=== PATIENT | male | born 1995 | race Caucasian/White ===

== ENCOUNTER 2019-01-03 08:50 | Emergency (ER) | payer OTHER ==
[2019-01-03] MEDS ORDERED: PANTOPRAZOLE 40 MG VIAL IVP STA (09:26)
[2019-01-03] MEDS ORDERED: ONDANSETRON ODT 4 MG TABLET TL STA (09:26)
[2019-01-03 09:27] LABS: BASOPHILS % (AUTO) 0.5 %; EOSINOPHILS # (AUTO) 0.1 10^3/uL (0.0-0.7); EOSINOPHILS % (AUTO) 1.6 %; HGB - HEMOGLOBIN 14.3 g/dL (14.0-18.0); LYMPHOCYTES % (AUTO) 16.2 %; MEAN CORPUSCULAR HEMOGLOBIN 30.2 pg (27.0-31.0); MEAN CORPUSCULAR HGB CONC 34.6 g/dL (32.0-36.0); MEAN CORPUSCULAR VOLUME 87.4 fL (80.0-94.0); MEAN PLATELET VOLUME 7.6 fL (7.4-11.4); MONOCYTES # (AUTO) 0.6 10^3/uL (0.0-1.0); MONOCYTES % (AUTO) 9.1 %; NEUTROPHILS # (AUTO) 4.6 10^3/uL (1.5-6.6); NEUTROPHILS % (AUTO) 72.6 %; PLT - PLATELET COUNT 249 10^3/uL (130-450); RED BLOOD COUNT 4.72 10^6/uL (4.70-6.10); RED CELL DISTRIBUTION WIDTH 13.1 % (12.0-15.0); WHITE BLOOD COUNT 6.4 x10^3/uL (4.8-10.8)
--- NOTE | 2019-01-03 09:37 | ED Physician Documentation ---
PD HPI NVD - Stated complaint Stated Complaint: VOMITING BLOOD - Chief complaint Chief Complaint: Abd Pain - History obtained from History obtained from: Patient - History of Present Illness Timing - onset: Today (at 4am) Timing - duration: Hours Timing - details: Abrupt onset Pain level max: 3 Pain level now: 3 Associated symptoms: Abdominal pain, Hematemesis. No: Fever, Chest pain, Melena, Hematochezia, Dizzy, Near syncope / syncope, Loss of appetite, Hematuria, Vaginal dc Contributing factors: Alcohol use, Other (admits to regular NSAID use after wroking out). No: Sick contact, Bad food, Travel, Recent antibiotics, Anticoagulated, Diabetes Improved by: Other (nothing) Worsened by: Other (vomiting) Similar symptoms before: Other (has a hx of GI bleeding once before) Recently seen: Not recently seen - Treatment prior to arrival Treatment prior to arrival: none Review of Systems Ten Systems: 10 systems reviewed and negative Constitutional: denies: Fever, Chills Cardiac: denies: Chest pain / pressure Respiratory: denies: Dyspnea GI: reports: Abdominal Pain, Nausea, Vomiting, Hematemesis. denies: Abdominal Swelling, Constipation, Diarrhea, Bloody / black stool Skin: denies: Rash Neurologic: denies: Generalized weakness, Syncope, LOC Endocrine: denies: Easy bruising / bleeding PD PAST MEDICAL HISTORY - Past Medical History Past Medical History: No Cardiovascular: None Respiratory: None Neuro: None Endocrine/Autoimmune: None GI: None : None HEENT: None Psych: None Musculoskeletal: None Derm: None - Past Surgical History Past Surgical History: Yes - Present Medications Home Medications: Ambulatory Orders Medication Instructions Recorded Confirmed Ondansetron Odt [Zofran] 4 mg TL Q6H PRN #10 tablet 01/03/19 Pantoprazole [Protonix] 40 mg PO DAILY #30 tablet 01/03/19 - Allergies Allergies/Adverse Reactions: Allergies Allergy/AdvReac Type Severity Reaction Status Date / Time No Known Drug Allergies Allergy Verified 01/03/19 09:09 - Social History Does the pt smoke?: No Smoking Status: Never smoker Does the pt drink ETOH?: Yes Does the pt have substance abuse?: No - Immunizations Immunizations are current?: Yes PD ED PE NORMAL - Vitals Vital signs reviewed: Yes - General General: Alert and oriented X 3 - HEENT HEENT: Atraumatic, Pharynx benign - Neck Neck: Supple, no meningeal sign, No JVD - Cardiac Cardiac: RRR - Respiratory Respiratory: No respiratory distress - Abdomen Abdomen: Soft, Non tender, Non distended, No organomegaly - Male Male : Deferred - Rectal Rectal: Deferred - Derm Derm: Normal color, Warm and dry, No rash - Extremities Extremities: No deformity, No edema - Neuro Neuro: Alert and oriented X 3 Eye Opening: Spontaneous Motor: Obeys Commands Verbal: Oriented GCS Score: 15 - Psych Psych: Normal mood, Normal affect Results - Vitals Vitals: Vital Signs - 24 hr 01/03/19 01/03/19 08:55 11:02 Temperature 36.9 C Heart Rate 74 72 Respiratory 16 13 Rate Blood Pressure 160/74 H 143/89 H O2 Saturation 97 99 Oxygen O2 Source Room air - Labs Labs: Laboratory Tests 01/03/19 01/03/19 09:21 09:21 WBC 6.4 RBC 4.72 Hgb 14.3 Hct 41.3 L MCV 87.4 MCH 30.2 MCHC 34.6 RDW 13.1 Plt Count 249 MPV 7.6 Neut # (Auto) 4.6 Lymph # (Auto) 1.0 L Kane # (Auto) 0.6 Eos # (Auto) 0.1 Baso # (Auto) 0.0 Absolute Nucleated RBC 0.00 Nucleated RBC % 0.0 Sodium 135 Potassium 3.7 Chloride 101 Carbon Dioxide 24 Anion Gap 10.0 BUN 16 Creatinine 1.1 Estimated GFR (MDRD) 84 L Glucose 101 H Calcium 9.5 Total Bilirubin 1.0 AST 60 H ALT 77 H Alkaline Phosphatase 80 Total Protein 8.1 Albumin 4.8 Globulin 3.3 Albumin/Globulin Ratio 1.5 Lipase 30 elevated lfts, normal H&H PD MEDICAL DECISION MAKING - ED course Complexity details: considered differential ED course: DDx - gastritis, GI bleed, alcoholic vs NSAID induced gastritis, pancreatitis, esophageal varices, IBD, suresh spivey tear 23 y/o M with hematemesis today at 4am. 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 Pt does use alcohol -drank a lot of whiskey this weekend Exam here is benign, vitals stable Given antiemetics and protonix here. Labs pending Pt feeling better, tolerating PO, asympomatic on recheck. Blatchford score is 0. Pt stable for outpt f/u. Suspect this was alcoholic gastritis though also may have been due to NSAID used. Advised pt to avoid both and f/u with PCP within a week. Return to ED if worsening symptoms. Departure - Departure Disposition: Home, Self Care Clinical Impression: Gastritis, Elevated liver enzymes Condition: Stable Record reviewed to determine appropriate education?: Yes Instructions: ED PUD Vs Gastritis Follow-Up: your, doctor [Other] - Within 1 week Prescriptions: Ondansetron Odt [Zofran] 4 mg TL Q6H PRN #10 tablet PRN Reason: Nausea / Vomiting Pantoprazole [Protonix] 40 mg PO DAILY #30 tablet Comments: Your labs today showed some mildly elevated liver enzymes that could be from drinking alcohol this weekend. Your blood counts today were normal suggesting only mild blood loss from vom iting. You likely have a gastritis. Causes of gastritis include NSAID use, H pylori bacteria, or alcohol use. You should avoid ibuprofen or naproxen for a few weeks until you follow up with your doctor. Limit alcohol intake and follow up with your doctor who may want to check for h pylori. Take zofran as needed for nausea or vomiting. Take protonix daily to reduce the acidity in your stomach. Return to the ED if recurrent worsening bleeding, black stool, passing out or other new concerns. Discharge Date/Time: 01/03/19 11:02
[2019-01-03 09:39] LABS: ALBUMIN 4.8 g/dL (3.2-5.5); ALBUMIN/GLOBULIN RATIO 1.5 (1.0-2.2); CALCIUM 9.5 mg/dL (8.5-10.3); CREATININE 1.1 mg/dL (0.6-1.2); TOTAL PROTEIN 8.1 g/dL (6.7-8.2)
[2019-01-03 11:02] VITALS: BP 143/89
== END 2019-01-03 11:02 | disposition home or self-care (01) ==
LOC: ED 08:50
DX: K29.70 Gastritis, unspecified, without bleeding (principal); R74.8 Abnormal levels of other serum enzymes
CPT/HCPCS: 36415; 80053; 83690; 85025; 96374; 99283; 99284; Q0162

== ENCOUNTER 2022-09-22 21:34 | Observation (INO) | payer OTHER ==
[2022-09-22] MEDS ORDERED: LIDOCAINE-EPINEPH-TETRACAINE 3 ML SYRINGE TOP STA (21:43)
[2022-09-22 21:57] LABS: BASOPHILS # (AUTO) 0.1 10^3/uL (0.0-0.1); BASOPHILS % (AUTO) 0.8 %; EOSINOPHILS # (AUTO) 0.1 10^3/uL (0.0-0.7); EOSINOPHILS % (AUTO) 1.3 %; HCT - HEMATOCRIT 41.4 % (42.0-52.0); HGB - HEMOGLOBIN 14.4 g/dL (14.0-18.0); LYMPHOCYTES # (AUTO) 1.7 10^3/uL (1.5-3.5); LYMPHOCYTES % (AUTO) 27.3 %; MEAN CORPUSCULAR HEMOGLOBIN 31.7 pg (27.0-31.0); MEAN CORPUSCULAR HGB CONC 34.8 g/dL (32.0-36.0); MEAN CORPUSCULAR VOLUME 91.2 fL (80.0-94.0); MEAN PLATELET VOLUME 9.3 fL (7.4-11.4); MONOCYTES # (AUTO) 0.7 10^3/uL (0.0-1.0); NEUTROPHILS # (AUTO) 3.6 10^3/uL (1.5-6.6); NEUTROPHILS % (AUTO) 58.9 %; PLT - PLATELET COUNT 181 10^3/uL (130-450); RED BLOOD COUNT 4.54 10^6/uL (4.70-6.10); RED CELL DISTRIBUTION WIDTH 11.2 % (12.0-15.0); WHITE BLOOD COUNT 6.1 x10^3/uL (4.8-10.8)
[2022-09-22 22:10] LABS: ALBUMIN 5.2 g/dL (3.2-5.5); ALBUMIN/GLOBULIN RATIO 1.6 (1.0-2.2); BILIRUBIN,TOTAL 1.8 mg/dL (0.2-1.0); CALCIUM 9.9 mg/dL (8.5-10.3); POTASSIUM 3.3 mmol/L (3.5-5.0); TOTAL PROTEIN 8.5 g/dL (6.7-8.2)
[2022-09-22] MEDS ORDERED: SODIUM CHLORIDE 0.9% 1,000 ML IV STA (22:14)
--- NOTE | 2022-09-22 22:27 | ED Physician Documentation ---
History of Present Illness - Stated complaint Stated Complaint: GLF/SZ; HEAD INJURY - Chief complaint Chief Complaint: Laceration - History obtained from History obtained from: Patient, Friend - Additonal information Additional information: Patient is a 26-year-old male with no significant past medical history presenting for evaluation of A syncopal episode versus seizure. 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 His coworkers were on top of the aircraft and saw him On the ground. Per the patient he recalls working and then remembers waking up with his coworkers around him. He denies feeling dizzy or lightheaded or recalling any other events prior to this episode.He was noted to have a head injury With an abrasion to his scalp.Per his coworker who is here with him, they noticed that he was having some all over body shaking for a minute. He is unable to tell me if the patient was unresponsive during this time. When EMS arrived, they did not notice any shaking movements.Patient does admit to alcohol use and reports he last drank on Tuesday. He denies ever having withdrawal symptoms from not having alcohol. He denies drug use. He denies having headache, chest pain, difficulty breathing, abdominal pain, vomiting. His tetanus is up-to-date. Review of Systems Constitutional: denies: Fever Cardiac: denies: Chest pain / pressure Respiratory: denies: Dyspnea GI: denies: Abdominal Pain, Vomiting : denies: Dysuria Musculoskeletal: denies: Back pain Neurologic: reports: Head injury. denies: Headache PD PAST MEDICAL HISTORY - Past Medical History Past Medical History: No Cardiovascular: None Respiratory: None Neuro: None Endocrine/Autoimmune: None GI: None : None HEENT: None Psych: None Musculoskeletal: None Derm: None - Past Surgical History Past Surgical History: Yes - Present Medications Home Medications: Ambulatory Orders Medication Instructions Recorded Confirmed No Known Home Medications 09/22/22 09/22/22 - Allergies Allergies/Adverse Reactions: Allergies Allergy/AdvReac Type Severity Reaction Status Date / Time No Known Drug Allergies Allergy Verified 09/22/22 21:46 - Social History Does the pt smoke?: No Smoking Status: Never smoker Does the pt drink ETOH?: Yes Does the pt have substance abuse?: No - Immunizations Immunizations are current?: Yes PD ED PE NORMAL - General General: Alert and oriented X 3, No acute distress, Well developed/nourished - HEENT HEENT: PERRL, EOMI, Moist mucous membranes, Pharynx benign, Other (Superficial abrasion to left parietal occipital scalp) - Neck Neck: Supple, no meningeal sign, No bony TTP, C-Spine cleared by NEXUS criteria - Cardiac Cardiac: RRR - Respiratory Respiratory: No respiratory distress, Clear bilaterally - Abdomen Abdomen: Soft, Non tender, Non distended - Derm Derm: Warm and dry - Extremities Extremities: No deformity, No tenderness to palpate - Neuro Neuro: Alert and oriented X 3, 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, No motor deficit, No sensory deficit, Normal speech Eye Opening: Spontaneous Motor: Obeys Commands Verbal: Oriented GCS Score: 15 Results - Vitals Vitals: Vital Signs - 24 hr 09/22/22 09/22/22 09/22/22 21:34 22:14 23:04 Temperature 36.9 C Heart Rate 82 108 H 98 Respiratory 16 16 13 Rate Blood Pressure 164/87 H 155/96 H 162/86 H O2 Saturation 97 99 99 09/23/22 00:00 Temperature Heart Rate 98 Respiratory 13 Rate Blood Pressure 145/97 H O2 Saturation 99 Oxygen O2 Source Room air - EKG (time done) 2206 Rate: Rate (enter#) (98) Rhythm: NSR Intervals: Prolonged QT (QTc 516) Ischemia: T wave inversion (Anterior lateral leads). No: ST elevation c/w isc hemia Compare to prior EKG: Old EKG unavailable - Labs Labs: Laboratory Tests 09/22/22 09/22/22 09/22/22 21:50 21:50 21:50 WBC 6.1 RBC 4.54 L Hgb 14.4 Hct 41.4 L MCV 91.2 MCH 31.7 H MCHC 34.8 RDW 11.2 L Plt Count 181 MPV 9.3 Neut # (Auto) 3.6 Lymph # (Auto) 1.7 Dubois # (Auto) 0.7 Eos # (Auto) 0.1 Baso # (Auto) 0.1 Absolute Nucleated RBC 0.00 Nucleated RBC % 0.0 Sodium 132 L Potassium 3.3 L Chloride 94 L Carbon Dioxide 23 Anion Gap 15.0 H BUN 14 Creatinine 1.0 Estimated GFR (MDRD) 91 Glucose 94 Calcium 9.9 Magnesium 1.8 Total Bilirubin 1.8 H AST 299 H ALT 270 H Alkaline Phosphatase 70 Troponin I High Sens Total Protein 8.5 H Albumin 5.2 Globulin 3.3 Albumin/Globulin Ratio 1.6 SARS-CoV-2 (PCR) 09/22/22 09/23/22 21:50 00:09 WBC RBC Hgb Hct MCV MCH MCHC RDW Plt Count MPV Neut # (Auto) Lymph # (Auto) Dubois # (Auto) Eos # (Auto) Baso # (Auto) Absolute Nucleated RBC Nucleated RBC % Sodium Potassium Chloride Carbon Dioxide Anion Gap BUN Creatinine Estimated GFR (MDRD) Glucose Calcium Magnesium Total Bilirubin AST ALT Alkaline Phosphatase Troponin I High Sens 3.1 Total Protein Albumin Globulin Albumin/Globulin Ratio SARS-CoV-2 (PCR) NOT DETECTED PD Medical Decision Making - ED course Complexity details: reviewed results, re-evaluated patient, d/w patient ED course: Patient evaluated after a syncopal episode versus seizure.Patient reported to me that he did not have any symptoms prior to the episode. He did have a mild abrasion to his scalp that did not require suture or essence. A head CT was obtained as history was unclear and the patient may have had a seizure to evaluate for intracranial bleed or mass. A CT brain which I reviewed is unremarkable. I also reviewed his chest x-ray. EKG was reviewed and it demonstrates a prolonged QT and abnormal T waves. I do not have a prior for comparison. Patient denies chest pain or other symptoms to suggest ACS. 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 Labs were reviewed and significant for mild hypokalemia of 3.3 and elevated LFTs. His abdominal exam is benign.Ultrasound of his abdomen was obtained which just shows a fatty liver.Radiologist is having difficulties and transmitting a report to us but I did speak with Dr. Kenny regarding the ultrasound report.Given the syncopal episode with a prolonged QT and patient not reporting any symptoms prior to this I am concerned for a possible arrhythmia. I do feel that he requires further observation and have discussed the case with the hospitalist as well as a local nursery school attendant. At this time patient does not require transfer for cardiology and I have sent information to Dr. Clay's office to help expedite outpatient work-up once patient is discharged. I reviewed patient's abnormal labs with him including elevated LFTs. He was seen here several years ago and also to have mildly increased liver enzymes at that time. He denies ever having follow-up for this or repeat levels checked. He denies having abdominal pain. He does report social drinking and had 2 shots of whiskey on Tuesday and 4 IPA beers on Tuesday but denies excess alcohol use otherwise. D/W Hospitalist - Dr. Fuentes. He is concerned that the patient may need Transfer for a nursery school attendant and recommends that we speak to 1 regarding the patient's EKG and syncope. [id number] - D/W Dr. Clay ([facility]) - Reviewed the case to Dr. Clay including abnormal EKG findings and story of events. She does not feel patient requires emergent transfer to facility for cardiology consultation. She would be happy to help arrange for close outpatient follow-up and request a copy of his EKG and a facesheet. She recommends observation overnight and an echo in the morning. Called back Dr. Fuentes and reviewed Dr. Clay's recommendations. He will see the patient and admit. Departure - Departure Disposition: ED Place in Observation Clinical Impression: Syncope, Elevated liver enzymes, Scalp abrasion, Abnormal EKG, Prolonged Q-T interval on ECG Condition: Stable Discharge Date/Time: 09/23/22 00:55
--- NOTE | 2022-09-22 22:34 | CT Report ---
PROCEDURE: HEAD WO INDICATIONS: head injury/seizure TECHNIQUE: Noncontrast 4.5 mm thick angled axial sections acquired from the foramen magnum to the vertex. For r adiation dose reduction, the following was used: automated exposure control, adjustment of mA and/or kV according to patient size. COMPARISON: None. FINDINGS: Image quality: Excellent. CSF spaces: Basal cisterns are patent. No extra-axial fluid collections. Ventricles are normal in size and shape. Brain: No intracranial hemorrhage, mass, or mass effect. Niño-white matter interface appears preser lexus. Skull and face: Calvarium and visualized facial bones are intact, without suspicious lesions. Sinuses: Visualized sinuses and mastoids are clear. IMPRESSION: 1. No acute intracranial abnormality. Reviewed by: Otoniel Siegel MD on 09/22/2022 10:33 PM PST Approved by: Otoniel Siegel MD on 09/22/2022 10:33 PM [facility] Station ID: [id number]
--- NOTE | 2022-09-22 22:35 | XRAY Report ---
PROCEDURE: Chest 1 View X-Ray INDICATIONS: syncope vs seizure TECHNIQUE: One view of the chest was acquired. COMPARISON: None. FINDINGS: Surgical changes and devices: None. Lungs and pleura: No pleural effusions or pneumothorax. Lungs are clear. Mediastinum: Mediastinal contours appear normal. Heart size is normal. Bones and chest wall: No suspicious bony lesions. Overlying soft tissues appear unremarkable. IMPRESSION: 1. No acute cardiopulmonary disease. Reviewed by: Otoniel Siegel MD on 09/22/2022 10:33 PM [facility] Approved by: Otoniel Siegel MD on 09/22/2022 10:33 PM [facility] Station ID: [id number]
[2022-09-22] MEDS ORDERED: POTASSIUM CHLORIDE 20 MEQ TABLET PO STA (23:15)
[2022-09-23] MEDS ORDERED: ACETAMINOPHEN 325 MG TABLET PO PRN (00:14)
[2022-09-23] MEDS ORDERED: SODIUM CHLORIDE FLUSH 0.9% 10 ML SYRINGE IVP PRN (00:14)
[2022-09-23] MEDS ORDERED: ONDANSETRON 4 MG/2 ML VIAL IVP PRN (00:14)
--- NOTE | 2022-09-23 00:43 | HISTORY & PHYSICAL EXAMINATION ---
Chief Complaint - Chief Complaint Chief Complaint: Syncope History of Present Illness - Admitted From Admitted From:: Work - History Obtained From Records Reviewed: Yes History obtained from: Patient and ER MD Dr Hogue Exam Limitations: Telemedicine - History of Present Illness HPI Comment/Other: "Patient is a 26-year-old male with no significant past medical history presenting for evaluation of A syncopal episode versus seizure. 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 His coworkers were on top of the aircraft and saw him On the ground. Per the patient he recalls working and then remembers waking up with his coworkers around him. He denies feeling dizzy or lightheaded or recalling any other events prior to this episode.He was noted to have a head injury With an abrasion to his scalp.Per his coworker who is here with him, they noticed that he was having some all over body shaking for a minute. He is unable to tell me if the patient was unresponsive during this time. When EMS arrived, they did not notice any shaking movements.Patient does admit to alcohol use and reports he last drank on Tuesday. He denies ever having withdrawal symptoms from not having alcohol. He denies drug use. 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 Patient had a small snack this am had 2 enerdy drinks "Bang" had tunnel vision had some palpitations and heart pounding and then passed out, has never passed out before, although has had episode of chest pounding in past associate with b lurry vision in past for few seconds. No illicit drug use, no steroid use no other active medical condition, he does admit to drinking on his days off and his liver enymes are elevated with transaminitis, no abdominal pain or discomfort, when seen by me he looks very healthy and well, he was found in the field with HR in 160's and also BP was mildly elevated. last drink was over the weekend. K was slightly low, no evidence of dehydration, EKG is concerning with Prolonged QT interval of 516 msec non specific T wave changes, I was not able to see EKG personally but discussed with ER MD. 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, CT head is unremarakble after the fall he did have a small abrasion on the scalp but cu rrently pain is 0/10 History - Past Medical History Cardiovascular: reports: None Respiratory: reports: None Neuro: reports: None Endocrine/Autoimmune: reports: None GI: reports: None : reports: None HEENT: reports: None Psych: reports: None Musculoskeletal: reports: None Derm: reports: None MRSA Hx?: No Meds/Allgy - Home Medications Home Medications: Ambulatory Orders Medication Instructions Recorded Confirmed No Known Home Medications 09/22/22 09/22/22 - Allergies Allergies/Adverse Reactions: Allergies Allergy/AdvReac Type Severity Reaction Status Date / Time No Known Drug Allergies Allergy Verified 09/22/22 21:46 Prior Level of Functionality: Very ACtive Exam - Vital Signs Reviewed Vital Signs: Yes Vital Signs: Vital Signs x48h Temp Pulse Resp BP Pulse Ox 09/23/22 00:00 98 13 145/97 H 99 09/22/22 23:04 98 13 162/86 H 99 09/22/22 22:14 108 H 16 155/96 H 99 09/22/22 21:34 36.9 C 82 16 164/87 H 97 - Physical Exam General Appearance: positive: No acute distress, Alert Eyes Bilateral: positive: Normal inspection, PERRL ENT: positive: ENT inspection nml, Pharynx nml, No signs of dehydration Neck: positive: Nml inspection, Thyroid nml, No JVD, Trachea midline Respiratory: positive: Chest non-tender, No respiratory distress, Breath sounds nml Cardiovascular: positive: Regular rate & rhythm, No murmur, No gallop (Exam was discussed in detail with ER MD) Peripheral Pulses: positive: 2+ Abdomen: positive: Non-tender, No organomegaly, Nml bowel sounds, No distention Back: positive: Nml inspection Skin: positive: Color nml, No rash, Warm, Dry Extremities: positive: Non-tender, Full ROM, Nml appearance Neurologic/Psychiatric: positive: Oriented x3, Mood/affect nml Sepsis Event Note (H) - Evaluation Current Stage of Sepsis: Ruled out Conclusion/Plan - Problem List (1) Prolonged QT interval Conclusion/Plan: Patient presentation is very concerning for his presentation of syncope from primary cardiac etiology and is very concerning in setting of Prolonged Qt interval, would repeat EKG in am, start on BB for his BP, Metoprolol if BP if still high in am, zI had a detial discussion with him regarding long QT as well as the fact that this could be episode of TIA and we should rule out ASD or PFO and do an echocardiogram with bubble study, additionally e should also be ruled out for HCM, as well as any other structural heart disease, he will also need a Cardiac intermediate manager monitor for monitoring his heart rate and Rhytm in setting of hx of palpitations would be very appropriate to rule out any sort of SVT. I have discussed all of the above with patient at [facility], addiotionally I also apprecaited ER MD Dr Butts who consulted on Cardiology at OSH as I would have ideally preferred him to be transferred to [facility] for an extensive work up. Also an EEG can be done and MRI of head can be done to complete the work up. All of the above discussed with patient BP was high on presentation in the field, need to monitor Gentle hydration will be given overngiht Hypoaklemia - K has been replaced in er (2) Seizures Conclusion/Plan: Monitor for now no concerns for ETOH withdrawl at this time, but can be a possibility additionally as mentioned above EEG, and MRI to be done to complete the work up Ativan prn (3) Elevated liver enzymes Conclusion/Plan: Likely from ETOH would check hepatitis panel, make sure he is fully vaccinated for HEp B and Hep C , conselling for etoh cessation and monitoring LFT as outpatient, ALT and AST were mildly elevated in 2019 but Bilirubin is 1.8 today and was 1 in 2019 - Lab Results Fish Bones: 09/22/22 21:50 09/22/22 21:50 - Diagnostic Imaging Results Diagnostic Imaging Results: positive: Final report reviewed - EKG Results EKG Interpreted Independently: No EKG Comparison: No prior EKG (DVT Prophylaxis)
--- NOTE | 2022-09-23 01:28 | Ultrasound Report ---
PROCEDURE: Abdomen Limited INDICATIONS: transaminitis TECHNIQUE: Real-time focused scanning was performed of the abdomen, with image documentation. COMPARISON: None. FINDINGS: Liver: Liver demonstrates increased echogenicity with coarse sonographic echotexture consistent with fatty infiltration. No discrete hepatic mass identified. Main portal vein demonstrates patent hepatop edal flow. Liver is slightly enlarged, measuring up to 18.4 cm. Gallbladder: Gallbladder demonstrates no stones, wall thickening, or pericholecystic fluid. Biliary tree: No intra or extrahepatic biliary ductal dilatation. Pancreas: The visualized pancreas appears grossly unremarkable. No definite peripancreatic fluid visu alized. IMPRESSION: 1. Increased hepatic echogenicity likely representing steatosis. Reviewed by: Otoniel Siegel MD on 09/23/2022 12:42 AM PST Approved by: Otoniel Siegel MD on 09/23/2022 12:42 AM PST Station ID: [id number]
[2022-09-23] MEDS: SODIUM CHLORIDE 0.9% 1,000 ML IV SCH ×3 (01:54→22:35)
[2022-09-23] MEDS: SODIUM CHLORIDE FLUSH 0.9% 10 ML SYRINGE IVP SCH ×3 (01:56→16:33)
[2022-09-23 06:03] LABS: BASOPHILS % (AUTO) 0.5 %; EOSINOPHILS # (AUTO) 0.1 10^3/uL (0.0-0.7); EOSINOPHILS % (AUTO) 1.5 %; HCT - HEMATOCRIT 35.6 % (42.0-52.0); HGB - HEMOGLOBIN 12.5 g/dL (14.0-18.0); MEAN CORPUSCULAR HEMOGLOBIN 32.7 pg (27.0-31.0); MEAN CORPUSCULAR HGB CONC 35.1 g/dL (32.0-36.0); MEAN CORPUSCULAR VOLUME 93.2 fL (80.0-94.0); MEAN PLATELET VOLUME 9.5 fL (7.4-11.4); MONOCYTES # (AUTO) 1.1 10^3/uL (0.0-1.0); MONOCYTES % (AUTO) 13.6 %; NEUTROPHILS # (AUTO) 4.7 10^3/uL (1.5-6.6); NEUTROPHILS % (AUTO) 58.8 %; PLT - PLATELET COUNT 148 10^3/uL (130-450); RED BLOOD COUNT 3.82 10^6/uL (4.70-6.10); RED CELL DISTRIBUTION WIDTH 11.4 % (12.0-15.0); WHITE BLOOD COUNT 8.1 x10^3/uL (4.8-10.8)
[2022-09-23 06:16] LABS: ALBUMIN/GLOBULIN RATIO 1.5 (1.0-2.2); BILIRUBIN,TOTAL 1.8 mg/dL (0.2-1.0); CREATININE 0.8 mg/dL (0.6-1.2); POTASSIUM 3.8 mmol/L (3.5-5.0); TOTAL PROTEIN 6.7 g/dL (6.7-8.2)
--- NOTE | 2022-09-23 07:21 | PHARMACY PROGRESS NOTE ---
- Best Possible Medication History Admit Date and Time: 09/23/22 0014 Processed by: Nursing Medication History completed: Yes No home meds per RN As the person ultimately responsible for medication therapy, providers are able to order a medication from an existing home medication list in [facility] via the "Reconcile Routine" prior to Confirmation of that medication by mining support worker. Such practice is discouraged except when the physician, in their clinical judgment, deems that a medical need exists for a medication without regard to previous use.
[2022-09-23] MEDS ORDERED: LORazepam 2 MG/ML VIAL IVP PRN (10:24)
[2022-09-23 10:53] LABS: MUDS CUTOFF CONCENTRATIONS CUTOFF CONC BELOW:
[2022-09-23] MEDS: THIAMINE 100 MG TABLET PO SCH (11:08)
[2022-09-23 11:10] LABS: AMPHETAMINE SCREEN,URINE NEGATIVE (NEGATIVE); BARBITURATE SCREEN,UR NEGATIVE (NEGATIVE); BENZODIAZEPINES SCREEN, URINE NEGATIVE (NEGATIVE); COCAINE SCREEN URINE NEGATIVE (NEGATIVE); METHADONE SCREEN, URINE NEGATIVE (NEGATIVE); METHAMPHETAMINES SCREEN, URINE NEGATIVE (NEGATIVE); OPIATE SCREEN, URINE NEGATIVE (NEGATIVE); OXYCODONE SCREEN, URINE NEGATIVE (NEGATIVE); PROPOXYPHENE SCREEN, URINE NEGATIVE (NEGATIVE); THC CANNABINOID SCREEN, URINE NEGATIVE (NEGATIVE); TRICYCLIC ANTIDEPRESSANT,URINE NEGATIVE (NEGATIVE)
--- NOTE | 2022-09-23 15:12 | Discharge Plan ---
Discharge Plan Problem Reviewed?: Yes Disposition: 02 Transfer Acute Care Hosp Condition: Fair No Smoking: If you smoke, Please STOP! Call for help.
--- NOTE | 2022-09-23 17:52 | PROVIDER PROGRESS NOTE ---
Assessment/Plan - Problem List (1) Syncope Assessment/Plan: This patient confirms that he has had about 1 year of palpitations that he feels in his chest and "in his eyes" then gets tunnel vision. These mostly happen when he is tired from lack of sleep. He has never had syncope with these until this event. He does not sit down or lay down when he gets those tunnel vision episodes, he just tries to concentrate and stares at 1 point and waits for the feeling to pass The patient was in an upright position and fell onto the back of his left head. The description is consistent with syncope from orthostasis. His HR was reported to be 160 when EMS arrived, but rhythm was not reported. Telemetry has been stable. Echo was done that does not show HOCM or an abnormal LVOT gradient or any other structural cardiac abnormality. Plan: I discussed that with the prodrome that he has, he should be assuming a supine position or at least sitting, for his future benefit With these palpitations that preceded the current syncope, he may have an underlying rhythm disturbance and needs more complex cardiac evaluation. I have reached out to [facility], to have him get a work-up by cardiology. We are in the process of getting him accepted and then transferred by ambulance. Continue with IV fluids Avoid high caffeine intake (2) Seizure Assessment/Plan: The patient had a witnessed tonic-clonic seizure and was frothing at the mouth. Unsure if he is a primary seizure disorder or if he had a simple fainting episode that then led to his seizure, possibly after the head trauma Plan: Patient needs evaluation with an EEG and neurology. I have been in contact with [facility] to have him evaluated there and we are in the process of having him accepted in transfer there by ambulance (3) Prolonged Q-T interval on ECG Assessment/Plan: His QTc is 516 ms. We have no old EKG available for comparison In addition he has marked LVH voltage with strain pattern. Interestingly, he does not have LVH or IHSS (HOCM) by Echo. His trop was unremarkable. Plan: EP evaluation is warranted and transfer is needed to a hospital with cardiology/EP providers. The patient is agreeable. (4) Elevated liver enzymes Assessment/Plan: Patient gives a history of alcohol binging, he does not drink every day but when he drinks there are either 2 shots or 4 beers and this can happen about every 4 days Ultrasound did show fatty liver Plan: We will order a CIWA protocol with prn iv Ativan use for alcohol withdrawal Follow LFTs Avoid hepatotoxins Decreasing alcohol intake was advised (5) Caffeine abuse Assessment/Plan: Patient reports that he drinks a "Bang" high caffeine drink usually sipping it over an entire day. But on the morning of this syncopal event he ingested 2 Bang drinks quickly, and had no other liquid or food that day. I suspect that led to the heart rate of 160 which was found by EMS at the scene. This is also causing him to be dehydrated and adding to the tachycardia. Plan: I advised decreasing his caffeine intake, explained why and the patient agreed. - Current Meds Current Meds: Current Medications Generic Name Dose Route Start Last Admin Trade Name Freq PRN Reason Stop Dose Admin Sodium Chloride 1,000 mls @ 100 mls/hr 09/23/22 01:00 09/23/22 16:32 Normal Saline 0.9% IV 0 mls/hr .Q10H MAGDALENE Infusion Sodium Chloride 10 ml 09/23/22 00:14 09/23/22 01:54 Sodium Chloride Flush 0.9% 10 Ml Syringe IVP 10 ml PRN PRN Administration NEEDED PER PROVIDER ORDERS Sodium Chloride 10 ml 09/23/22 01:00 09/23/22 16:33 Sodium Chloride Flush 0.9% 10 Ml Syringe IVP 10 ml 0100,0900,1700 MAGDALENE Administration Thiamine HCl 100 mg 09/23/22 12:00 09/23/22 11:08 Thiamine 100 Mg Tablet PO 100 mg DAILY MAGDALENE Administration - Lab Result Fish Bone Diagrams: 09/23/22 05:44 09/23/22 05:44 - Additional Planning My Orders: My Active Orders 09/23/22 10:24 CIWA - AR Score Card [RC] Q4HR LORazepam INJ [Ativan Inj (Vial)] 2 mg IVP Q30M PRN 09/23/22 12:00 Thiamine [Vitamin B-1] 100 mg PO DAILY Subjective - Subjective Patient Reports: Resting Comfortably, No Complaints Objective Vital Signs: Vital Signs - 24 hr 09/22/22 09/22/22 09/22/22 21:34 22:14 23:04 Temperature 36.9 C Heart Rate 82 108 H 98 Heart Rate [ Brachial] Heart Rate [ Monitoring electrodes] Respiratory 16 16 13 Rate Blood Pressure 164/87 H 155/96 H 162/86 H Blood Pressure [Left Brachial artery] O2 Saturation 97 99 99 09/23/22 09/23/22 09/23/22 00:00 01:06 05:38 Temperature 36.6 C 36.6 C Heart Rate 98 Heart Rate [ Brachial] Heart Rate [ 91 75 Monitoring electrodes] Respiratory 13 18 16 Rate Blood Pressure 145/97 H Blood Pressure 129/96 H 119/66 [Left Brachial artery] O2 Saturation 99 99 100 09/23/22 09/23/22 09/23/22 08:24 11:50 15:32 Temperature 36.7 C 36.6 C 36.5 C Heart Rate Heart Rate [ 64 Brachial] Heart Rate [ 71 70 Monitoring electrodes] Respiratory 18 18 20 Rate Blood Pressure Blood Pressure 134/87 H 135/83 H 137/58 H [Left Brachial artery] O2 Saturation 98 100 100 Oxygen O2 Source Room air I&O (Last 24 Hrs): Intake and Output Totals x24h 09/21/22 09/22/22 09/23/22 23:59 23:59 23:59 Intake Total 1000 4401.667 Balance 1000 4401.667 General: Alert, Oriented x3 HEENT: Mucous membr. moist/pink Neck: Supple, No JVD, +2 carotid pulse wo bruit Neuro: Alert, Non Focal Cardiovascular: Regular rate, No murmurs Respiratory: No respiratory distress, Breath sounds nml Abdomen: Normal bowel sounds, Soft, No tenderness Extremities: No clubbing, No edema, No tenderness/swelling - Results Results: Laboratory Results WBC 8.1 x10^3/uL (4.8-10.8) 09/23/22 05:44 RBC 3.82 10^6/uL (4.70-6.10) L 09/23/22 05:44 Hgb 12.5 g/dL (14.0-18.0) L 09/23/22 05:44 Hct 35.6 % (42.0-52.0) L 09/23/22 05:44 MCV 93.2 fL (80.0-94.0) 09/23/22 05:44 MCH 32.7 pg (27.0-31.0) H 09/23/22 05:44 MCHC 35.1 g/dL (32.0-36.0) 09/23/22 05:44 RDW 11.4 % (12.0-15.0) L 09/23/22 05:44 Plt Count 148 10^3/uL (130-450) 09/23/22 05:44 MPV 9.5 fL (7.4-11.4) 09/23/22 05:44 Neut # (Auto) 4.7 10^3/uL (1.5-6.6) 09/23/22 05:44 Lymph # (Auto) 2.0 10^3/uL (1.5-3.5) 09/23/22 05:44 Sunflower # (Auto) 1.1 10^3/uL (0.0-1.0) H 09/23/22 05:44 Eos # (Auto) 0.1 10^3/uL (0.0-0.7) 09/23/22 05:44 Baso # (Auto) 0.0 10^3/uL (0.0-0.1) 09/23/22 05:44 Absolute Nucleated RBC 0.00 x10^3/uL 09/23/22 05:44 Nucleated RBC % 0.0 /100WBC 09/23/22 05:44 Sodium 136 mmol/L (135-145) 09/23/22 05:44 Potassium 3.8 mmol/L (3.5-5.0) 09/23/22 05:44 Chloride 103 mmol/L (101-111) 09/23/22 05:44 Carbon Dioxide 23 mmol/L (21-32) 09/23/22 05:44 Anion Gap 10.0 (6-13) 09/23/22 05:44 BUN 10 mg/dL (6-20) 09/23/22 05:44 Creatinine 0.8 mg/dL (0.6-1.2) 09/23/22 05:44 Estimated GFR (MDRD) 118 (>89) 09/23/22 05:44 Glucose 95 mg/dL (70-100) 09/23/22 05:44 Calcium 9.0 mg/dL (8.5-10.3) 09/23/22 05:44 Magnesium 2.0 mg/dL (1.7-2.8) 09/23/22 05:44 Total Bilirubin 1.8 mg/dL (0.2-1.0) H 09/23/22 05:44 AST 240 IU/L (10-42) H 09/23/22 05:44 ALT 234 IU/L (10-60) H 09/23/22 05:44 Alkaline Phosphatase 59 IU/L (42-121) 09/23/22 05:44 Troponin I High Sens 3.1 ng/L (2.3-19.7) 09/22/22 21:50 Total Protein 6.7 g/dL (6.7-8.2) 09/23/22 05:44 Albumin 4.0 g/dL (3.2-5.5) 09/23/22 05:44 Globulin 2.7 g/dL (2.1-4.2) 09/23/22 05:44 Albumin/Globulin Ratio 1.5 (1.0-2.2) 09/23/22 05:44 Urine Opiates Screen NEGATIVE (NEGATIVE) 09/23/22 10:50 Ur Oxycodone Screen NEGATIVE (NEGATIVE) 09/23/22 10:50 Urine Methadone Screen NEGATIVE (NEGATIVE) 09/23/22 10:50 Ur Propoxyphene Screen NEGATIVE (NEGATIVE) 09/23/22 10:50 Ur Barbiturates Screen NEGATIVE (NEGATIVE) 09/23/22 10:50 Ur Tricyclics Screen NEGATIVE (NEGATIVE) 09/23/22 10:50 Ur Phencyclidine Scrn NEGATIVE (NEGATIVE) 09/23/22 10:50 Ur Amphetamine Screen NEGATIVE (NEGATIVE) 09/23/22 10:50 U Methamphetamines Scrn NEGATIVE (NEGATIVE) 09/23/22 10:50 U Benzodiazepines Scrn NEGATIVE (NEGATIVE) 09/23/22 10:50 Urine Cocaine Screen NEGATIVE (NEGATIVE) 09/23/22 10:50 U Cannabinoids Screen NEGATIVE (NEGATIVE) 09/23/22 10:50 SARS-CoV-2 (PCR) NOT DETECTED 09/23/22 00:09 Sepsis Event Note (H) - Evaluation Current Stage of Sepsis: Ruled out
[2022-09-24] MEDS: SODIUM CHLORIDE 0.9% 1,000 ML IV SCH (08:45)
[2022-09-24] MEDS: THIAMINE 100 MG TABLET PO SCH (08:45)
[2022-09-24] MEDS: SODIUM CHLORIDE FLUSH 0.9% 10 ML SYRINGE IVP SCH ×2 (08:46→12:20)
[2022-09-24 10:02] LABS: PT - PROTHROMBIN TIME 10.9 secs (9.9-12.6)
[2022-09-24 10:05] LABS: ALBUMIN 4.2 g/dL (3.2-5.5); ALBUMIN/GLOBULIN RATIO 1.4 (1.0-2.2); BILIRUBIN,TOTAL 0.8 mg/dL (0.2-1.0); CALCIUM 9.2 mg/dL (8.5-10.3); CREATININE 0.7 mg/dL (0.6-1.2); POTASSIUM 3.7 mmol/L (3.5-5.0); TOTAL PROTEIN 7.1 g/dL (6.7-8.2)
--- NOTE | 2022-09-24 15:07 | DISCHARGE SUMMARY ---
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 These mostly happen when he is tired from lack of sleep. He has never had syncope with these feelings. He does not sit down or lay down when he gets those tunnel vision episodes, he just tries to concentrate and stares at 1 point and waits for the feeling to pass. The [facility], standing in an upright position, got his tunnel vision and fell onto the back of his left head. The bystanders reported he was "shaking" and "foaming at the mouth". EMS arrived and documented a HR of 127 and BP 160/90. The patient can remember starting to fall backward, and then has no memory of anything until, he remembers at some point, he was helped up to his feet and could walk to the gurney to get into the ambulance. Vital signs in the ER were stable and labs were overall stable. Head CT showed no acute findings. His exam showed a large, raised ecchymosis over his left parietal occipital area, but his neuro exam was normal. EKG was very abnormal showing sinus rhythm, LA enlargement, LVH voltage, LVH strain pattern and a prolonged QTc interval of 516 msec. His liver function tests were also mildly elevated, but normal bili and INR. The patient did admit to binge drinking alcohol about every 4 days. Abdomen ultrasound was done that showed no gallbladder disease and his liver did have fatty changes. Patient was placed in Observation status to get IV fluids, monitored on telemetry, check troponins and obtain Echo for syncope work-up. - HOSPITAL COURSE Hospital Course: (1) Syncope This patient confirmed that he has had about 1 year of palpitations followed by tunnel vision. He has never had syncope. The description is consistent with syncope from orthostasis. Telemetry was entirely stable. Echo was done that does not show HOCM or an abnormal LVOT gradient,or any other structural cardiac abnormality. (2) Seizure The patient had what was [id number] as a witnessed tonic-clonic seizure and was frothing at the mouth. Unsure if he is a primary seizure disorder, thus he needs evaluation with an EEG and neurology. Patient was accepted in transfer to [facility]. (3) Prolonged Q-T interval on ECG His QTc is 516 ms. We have no old EKG available for comparison. In addition he has marked LVH voltage with strain pattern. Interestingly, he does not have LVH or IHSS (HOCM) by Echo. His trop was unremarkable. EP evaluation is warranted and transfer is needed to a hospital with cardiology/EP providers. Patient was accepted in transfer to [facility], and transferred by ambulance in stable condition. (4) Elevated liver enzymes Patient gives a history of alcohol binging, he does not drink every day but when he drinks there are either 2 shots or 4 beers and this can happen about every 4 days. Ultrasound of abdomen did show fatty liver. His AST/ALT were . We ordered a CIWA protocol with prn iv Ativan use, but he had no signs of alcohol withdrawal while here. Decreasing alcohol intake was advised. (5) Caffeine abuse Patient reports that he drinks a "Bang" high caffeine drink once a week, usually sipping it over an entire day. But on the morning of this syncopal event, he ing ested 2 Bang drinks quickly, and had no other liquid or food that day. This may have added to the palpitaions and tachycardia. Decreasing caffeine was advised. - ALLERGIES Allergies/Adverse Reactions: Allergies Allergy/AdvReac Type Severity Reaction Status Date / Time No Known Drug Allergies Allergy Verified 09/22/22 21:46 - MEDICATIONS Home Medications: Ambulatory Orders Medication Instructions Recorded Confirmed No Known Home Medications 09/22/22 09/22/22 - PHYSICAL EXAM AT DISCHARGE General Appearance: positive: No acute distress, Alert Eyes Bilateral: positive: Normal inspection, EOMI, No lid inflammation ENT: positive: ENT inspection nml, No signs of dehydration Neck: positive: Nml inspection, Thyroid nml, No JVD Respiratory: positive: No respiratory distress, Breath sounds nml Cardiovascular: positive: Regular rate & rhythm, No murmur Abdomen: positive: Non-tender, Nml bowel sounds, No distention Skin: positive: Warm, Dry Extremities: positive: Non-tender, No pedal edema Neurologic/Psychiatric: positive: Oriented x3, Motor nml - LABS Result Diagrams: 09/23/22 05:44 09/24/22 09:46 - DIAGNOSTIC IMAGING Diagnostic Imaging Results: Final report reviewed - FOLLOW UP Follow Up: This will be determined after his hospitalization at [facility]. - TIME SPENT Time Spent in Discharge (Minutes): 55
[2022-09-24 16:05] VITALS: BP 136/74
== END 2022-09-24 16:40 | disposition short-term general hospital (02) ==
LOC: EDUNIT# → ED 21:34 → MS2 09-23 00:14
PROVIDERS: ADMIT Internal Medicine; ATTEND Internal Medicine
DX: R55 Syncope and collapse (principal); S00.01XA Abrasion of scalp, initial encounter; W19.XXXA Unspecified fall, initial encounter; H53.489 Generalized contraction of visual field, unspecified eye; F15.10 Other stimulant abuse, uncomplicated; R00.0 Tachycardia, unspecified; R00.2 Palpitations; R03.0 Elevated blood-pressure reading, without diagnosis of hypertension; R74.01 Elevation of levels of liver transaminase levels; R94.31 Abnormal electrocardiogram [ECG] [EKG]; Z20.822 Contact with and (suspected) exposure to COVID-19
CPT/HCPCS: 36415; 70450; 71045; 76705; 80053; 80306; 83735; 84484; 85025; 85610; 87635; 93005; 93306; 96360; 96361; 99285; A9270; G0378

== ENCOUNTER 2022-10-05 18:25 | Outpatient (CLI) | payer OTHER | END 2022-10-05 23:59 | disposition critical access hospital (66) | LOC: EMS 18:25 | DX: R56.9 Unspecified convulsions (principal) | CPT/HCPCS: A0425; A0429 ==

== ENCOUNTER 2022-10-05 18:45 | Emergency (ER) | payer OTHER ==
--- NOTE | 2022-10-05 19:06 | ED Physician Documentation ---
PD HPI SEIZURE - Stated complaint Stated Complaint: SEIZURE - Chief complaint Chief Complaint: Neuro - History obtained from History obtained from: Patient, EMS - History of Present Illness Number of seizures: Single Description of seizure activity: Generalized, Tonic clonic Pain level max: 0 Pain level now: 0 - Additional information Additional information: Patient is a 26-year-old male who presents to the emergency department after having a seizure today at [employer]. He states he had a seizure about 2 weeks ago while at the grocery store. He was admitted here for seizure versus syncope and a prolonged QT. He was then transferred to [facility]. At [facility] he underwent an MRI and cardiac evaluation. He is awaiting the results of the MRI. He is supposed to have an EEG on Tuesday. Today he states there were flickering lights in the store and he reportedly had a seizure. No injuries. No loss of bowel or bladder control. No tongue biting. Review of Systems Constitutional: denies: Fever, Chills GI: denies: Nausea, Vomiting, Diarrhea Musculoskeletal: denies: Neck pain, Back pain Neurologic: denies: Headache PD PAST MEDICAL HISTORY - Past Medical History Cardiovascular: None Respiratory: None Neuro: None Endocrine/Autoimmune: None GI: None : None HEENT: None Psych: None Musculoskeletal: None Derm: None - Past Surgical History Past Surgical History: Yes HEENT: Tonsil/Adenoidectomy - Present Medications Home Medications: Ambulatory Orders Medication Instructions Recorded Confirmed Levetiracetam [Keppra] 500 mg PO BID #28 tablet 10/05/22 - Allergies Allergies/Adverse Reactions: Allergies Allergy/AdvReac Type Severity Reaction Status Date / Time No Known Drug Allergies Allergy Verified 09/22/22 21:46 - Social History Does the pt smoke?: No Smoking Status: Never smoker Does the pt drink ETOH?: Yes Does the pt have substance abuse?: No - Immunizations Immunizations are current?: Yes PD ED PE NORMAL - Vitals Vital signs reviewed: Yes - General General: Alert and oriented X 3, No acute distress - HEENT HEENT: Atraumatic, PERRL, Ears normal, Moist mucous membranes, Pharynx benign - Neck Neck: Supple, no meningeal sign, No bony TTP - Cardiac Cardiac: RRR, No murmur - Respiratory Respiratory: No respiratory distress, Clear bilaterally - Abdomen Abdomen: Soft, Non tender, Non distended - Back Back: No CVA TTP, No spinal TTP - Derm Derm: Warm and dry - Extremities Extremities: No edema, No calf tenderness / cord - Neuro Neuro: Alert and oriented X 3, tester operator helper 2-12 intact, No motor deficit, No sensory deficit, Normal speech Eye Opening: Spontaneous Motor: Obeys Commands Verbal: Oriented GCS Score: 15 - Psych Psych: Normal mood, Normal affect Results - Vitals Vitals: Vital Signs - 24 hr 10/05/22 10/05/22 18:49 20:32 Temperature 36.4 C L 37.1 C Heart Rate 96 82 Respiratory 15 17 Rate Blood Pressure 141/77 H 138/78 H O2 Saturation 99 98 Oxygen O2 Source Room air - Labs Labs: Laboratory Tests 10/05/22 10/05/22 20:13 20:13 Lactic Acid 1.4 Prolactin 10.44 PD Medical Decision Making - ED course Complexity details: reviewed results, re-evaluated patient, considered differential, d/w patient, d/w acura sales consultant Reviewed Lab Results: No significant abnormalities on lactic acid or procalcitonin. Note that these were drawn several hours after the seizure. ED course: 26-year-old male with a witnessed seizure today. He had a new onset seizure about 2 weeks ago. Both appear to have been triggered by flashing lights. He has an EEG scheduled for Tuesday. Discussed the case with neurology at [facility] where he is being evaluated and worked up. They recommend starting him on Keppra 500 mg p.o. twice daily. They recommend that he follow-up in clinic for further care. They asked that we obtain a procalcitonin and lactic acid level. This was performed. They recommend that he will need to be increased on his Keppra to 1000 mg p.o. twice daily after 14 days. Therefore I will write his initial 14-day prescription. Patient was counseled not to drive. To avoid swimming pools, hot tubs, bathtubs, etc. Avoid ladders and other places that he could seriously injure himself if he were to have a seizure. Patient counseled regarding signs and symptoms for which I believe and urgent re-evaluation would be necessary. Patient with good understanding of and agreement to plan and is comfortable going home at this time This document was made in part using voice recognition software. While efforts are made to proofread this document, sound alike and grammatical errors may occur. Departure - Departure Disposition: 01 Home, Self Care Clinical Impression: Seizure Condition: Good Instructions: ED Seizure Recurrent Follow-Up: [facility] [Provider Group] - Within 1 week Prescriptions: Levetiracetam [Keppra] 500 mg PO BID #28 tablet Comments: Please follow-up with your doctor in [facility] as scheduled for further care. Make sure to get your EEG performed on Tuesday. I did discuss your case with the neurologist on-call at [facility]. They have recommended that you be started on Keppra 500 mg by mouth twice daily x2 weeks and then increase to 1000 mg by mouth twice daily. Please return if you worsen. You are not to drive until cleared by neurology. Please avoid swimming, hot tubs, bathtubs, etc. Your prescriptions were sent to the [facility] pharmacy. Discharge Date/Time: 10/05/22 20:32
[2022-10-05] MEDS: levETIRAcetam 250 MG TABLET PO STA (20:22)
[2022-10-05 20:33] VITALS: BP 138/78
== END 2022-10-05 20:32 | disposition home or self-care (01) ==
LOC: EDUNIT# → ED 18:45
DX: R56.9 Unspecified convulsions (principal)
CPT/HCPCS: 36415; 83605; 84146; 99283; 99284; A9270

== ENCOUNTER 2023-02-19 21:00 | Outpatient (CLI) | payer OTHER | END 2023-02-19 23:59 | disposition critical access hospital (66) | LOC: EMS 21:00 | DX: R41.0 Disorientation, unspecified (principal); H55.00 Unspecified nystagmus; F10.90 Alcohol use, unspecified, uncomplicated; R46.89 Other symptoms and signs involving appearance and behavior; Z78.1 Physical restraint status | CPT/HCPCS: A0425; A0427 ==

== ENCOUNTER 2023-02-19 21:17 | Emergency (ER) | payer OTHER ==
[2023-02-19] MEDS ORDERED: THIAMINE INJ 100 MG in SODIUM CHLORIDE 0.9% 50 ML IV STA (21:26)
[2023-02-19] MEDS ORDERED: FOLIC ACID INJ 1 MG in SODIUM CHLORIDE 0.9% 1,000 ML IV STA (21:26)
[2023-02-19] MEDS ORDERED: LORazepam 2 MG/ML VIAL IVP STA (21:37)
[2023-02-19 21:41] LABS: BASOPHILS # (AUTO) 0.1 10^3/uL (0.0-0.1); BASOPHILS % (AUTO) 1.1 %; EOSINOPHILS # (AUTO) 0.1 10^3/uL (0.0-0.7); EOSINOPHILS % (AUTO) 1.2 %; HCT - HEMATOCRIT 40.8 % (42.0-52.0); HGB - HEMOGLOBIN 14.2 g/dL (14.0-18.0); LYMPHOCYTES % (AUTO) 23.9 %; MEAN CORPUSCULAR HEMOGLOBIN 32.5 pg (27.0-31.0); MEAN CORPUSCULAR HGB CONC 34.8 g/dL (32.0-36.0); MEAN CORPUSCULAR VOLUME 93.4 fL (80.0-94.0); MEAN PLATELET VOLUME 8.8 fL (7.4-11.4); MONOCYTES # (AUTO) 0.9 10^3/uL (0.0-1.0); MONOCYTES % (AUTO) 10.3 %; NEUTROPHILS # (AUTO) 5.2 10^3/uL (1.5-6.6); NEUTROPHILS % (AUTO) 61.9 %; PLT - PLATELET COUNT 353 10^3/uL (130-450); RED BLOOD COUNT 4.37 10^6/uL (4.70-6.10); RED CELL DISTRIBUTION WIDTH 11.7 % (12.0-15.0); WHITE BLOOD COUNT 8.3 x10^3/uL (4.8-10.8)
[2023-02-19 21:54] LABS: ALBUMIN 4.5 g/dL (3.2-5.5); ALBUMIN/GLOBULIN RATIO 1.5 (1.0-2.2); BILIRUBIN,TOTAL 0.2 mg/dL (0.2-1.0); CALCIUM 9.2 mg/dL (8.5-10.3); CREATININE 0.9 mg/dL (0.6-1.3); POTASSIUM 3.4 mmol/L (3.5-4.5); TOTAL PROTEIN 7.5 g/dL (6.4-8.9)
[2023-02-19 21:59] LABS: ETOH - ETHANOL 519.8 mg/dL
[2023-02-19 22:06] LABS: MUDS CUTOFF CONCENTRATIONS CUTOFF CONC BELOW:
[2023-02-19] MEDS ORDERED: FOLIC ACID 5 MG/1 ML 10ML MDV ONE ×2 (22:13→22:24)
[2023-02-19] MEDS ORDERED: THIAMINE 100 MG/1 ML 2 ML MDV ONE ×2 (22:13→22:25)
--- OUTSIDE RECORDS SUMMARY | 2023-02-19 22:15 | EXTERNAL MEDICAL SUMMARY RPT | Continuity of Care Document ---
Author Name Unknown Address [address] [place] [address] Phone Organization [place] Address [address] [place] [address] Phone Problems date description facility 2023-02-10 11:20 Epilepsy, unspecifie d, not intractable, without status [facility] 2023-02-11 08:09 Epilepsy, unspecifie d, not intractable, without status [facility] 2023-02-15 09:45 Epilepsy, unspecifie d, not intractable, without status [facility] Results/Labs test date facility value unit notes
[2023-02-19 22:17] LABS: AMPHETAMINE SCREEN,URINE NEGATIVE (NEGATIVE); BARBITURATE SCREEN,UR NEGATIVE (NEGATIVE); BENZODIAZEPINES SCREEN, URINE NEGATIVE (NEGATIVE); COCAINE SCREEN URINE NEGATIVE (NEGATIVE); METHADONE SCREEN, URINE NEGATIVE (NEGATIVE); METHAMPHETAMINES SCREEN, URINE NEGATIVE (NEGATIVE); OPIATE SCREEN, URINE NEGATIVE (NEGATIVE); OXYCODONE SCREEN, URINE NEGATIVE (NEGATIVE); PROPOXYPHENE SCREEN, URINE NEGATIVE (NEGATIVE); THC CANNABINOID SCREEN, URINE NEGATIVE (NEGATIVE); TRICYCLIC ANTIDEPRESSANT,URINE NEGATIVE (NEGATIVE)
--- NOTE | 2023-02-20 00:40 | ED Physician Documentation ---
PD HPI ALTERED MENTAL STATUS - Stated complaint Stated Complaint: SZ - Chief complaint Chief Complaint: Neuro - History obtained from History obtained from: EMS - Additional information Additional information: 27-year-old male with history of alcohol use disorder, seizure disorder presents by EMS from home for a seizure. History obtained by EMS as the patient is currently confused. EMS states that the family arrived at the patient's house to perform an intervention on him for his alcohol use, and they found him passed out next to two empty [employer] vodka bottles with abnormal eye movements and p ossible seizure activity. EMS states that when they arrived the patient appeared postictal, however when they were loading him onto the EMS stretcher he began to possibly seize again and administered 2.5mg IV versed. On arrival patient confused, not following commands. Review of Systems Unable to obtain: AMS, Confused PD PAST MEDICAL HISTORY - Past Medical History Cardiovascular: None Respiratory: None Neuro: None Endocrine/Autoimmune: None GI: None : None HEENT: None Psych: None Musculoskeletal: None Derm: None Other Past Medical History: ALCOHOL USE DISORDER - Past Surgical History Past Surgical History: Yes HEENT: Tonsil/Adenoidectomy - Present Medications Home Medications: Ambulatory Orders Medication Instructions Recorded Confirmed Levetiracetam [Keppra] 500 mg PO BID #28 tablet 10/05/22 - Allergies Allergies/Adverse Reactions: Allergies Allergy/AdvReac Type Severity Reaction Status Date / Time No Known Drug Allergies Allergy Verified 09/22/22 21:46 - Social History Does the pt smoke?: No Smoking Status: Never smoker Does the pt drink ETOH?: Yes Does the pt have substance abuse?: No - Immunizations Immunizations are current?: Yes PD ED PE NORMAL - Vitals Vital signs reviewed: Yes - General General: No acute distress, Well developed/nourished, Other (confused, GCS 13) - HEENT HEENT: Atraumatic, PERRL - Neck Neck: Supple, no meningeal sign - Cardiac Cardiac: No murmur, Strong equal pulses, Other (tachycardia) - Respiratory Respiratory: No respiratory distress, Clear bilaterally - Abdomen Abdomen: Soft, Non tender, Non distended - Derm Derm: Normal color, Warm and dry, No rash - Neuro Neuro: biochemistry specialist 2-12 intact, No motor deficit, No sensory deficit Results - Vitals Vitals: Vital Signs - 24 hr 0702/19/23 02/19/23 21:29 22:03 22:30 Temperature 36.6 C Heart Rate 111 H 118 H 113 H Respiratory 18 16 Rate Blood Pressure 136/76 H 134/72 H 130/85 H O2 Saturation 96 95 If not protocol 3 : Oxygen Flow, liters/minute 02/19/23 02/19/23 02/20/23 23:00 23:30 00:00 Temperature Heart Rate 96 119 H 110 H Respiratory 16 18 16 Rate Blood Pressure 130/85 H 125/106 H 150/105 H O2 Saturation 96 100 97 If not protocol 2 : Oxygen Flow, liters/minute 02/20/23 02/20/23 02/20/23 00:28 01:00 01:30 Temperature Heart Rate 115 H 115 H 110 H Respiratory 16 18 18 Rate Blood Pressure 150/105 H 141/68 H 124/90 H O2 Saturation 94 96 96 If not protocol : Oxygen Flow, liters/minute Oxygen O2 Source Room air - EKG (time done) 2156 EKG releavant findings:: EKG personally interpreted by author of this note. Relevant findings are: Rate: Rate (enter#) (125), Tachy Rhythm: Sinus tachycardia [place]: Normal Intervals: Normal AL QRS: Normal - Labs Labs: Laboratory Tests 02/19/23 02/19/23 02/19/23 21:36 21:36 22:00 WBC 8.3 RBC 4.37 L Hgb 14.2 Hct 40.8 L MCV 93.4 MCH 32.5 H MCHC 34.8 RDW 11.7 L Plt Count 353 MPV 8.8 Neut # (Auto) 5.2 Lymph # (Auto) 2.0 [place] # (Auto) 0.9 Eos # (Auto) 0.1 Baso # (Auto) 0.1 Absolute Nucleated RBC 0.00 Nucleated RBC % 0.0 Sodium 145 Potassium 3.4 L Chloride 104 Carbon Dioxide 31 Anion Gap 10.0 BUN 7 Creatinine 0.9 Estimated GFR (MDRD) 102 Glucose 124 H Calcium 9.2 Total Bilirubin 0.2 AST 68 H ALT 108 H Alkaline Phosphatase 70 Total Protein 7.5 Albumin 4.5 Globulin 3.0 Albumin/Globulin Ratio 1.5 Lipase 44 Urine Opiates Screen NEGATIVE Ur Oxycodone Screen NEGATIVE Urine Methadone Screen NEGATIVE Ur Propoxyphene Screen NEGATIVE Ur Barbiturates Screen NEGATIVE Ur Tricyclics Screen NEGATIVE Ur Phencyclidine Scrn NEGATIVE Ur Amphetamine Screen NEGATIVE U Methamphetamines Scrn NEGATIVE U Benzodiazepines Scrn NEGATIVE Urine Cocaine Screen NEGATIVE U Cannabinoids Screen NEGATIVE Ethyl Alcohol 519.8 H* PD Medical Decision Making - ED course Complexity details: reviewed old records, reviewed results, re-evaluated patient, considered differential, d/w patient, d/w family ED course: Seizure activity in patient with hx of seizures and alcohol use disorder. Possibly postictal, patient has keppra listed on SEP, will load with keppra, give IV fluids, thiamine, folic acid. Patient became combative on arrival, unable to be verbally redirected. Given ativan. Patient's EtOH level 520. Patient vomited while in ED bed, however maintaining airway, progressively becoming less confused. Pending CT brain imaging. Mother and father at bedside. Mother states that patient has extensive hx of alcohol use and it has begun to progressively affect his life. He has been drinking and driving. His has left him due to alcohol use, and patient is no longer caring for the animals at his house due to his alcohol use. They were going to try to stage an intervention tonight, however found the patient altered at home and called 911. They requested that I place the patient under an involuntary hold due to his alcohol use. I explained that since the patient has never exhibited any suicidal tendencies I am unable to place him under an involuntary hold. Mother requested a number to speak with the patient's commanding officer, the number to the [employer]. Personnel from the are at bedside to speak to patient and family. Patient is clinically improving, walking, conversing with myself and nursing staff - still appears moderately intoxicated. Family spoke with personnel and they feel comfortable taking the patient home with them. Patient counseled again on the importance of alcohol cessation. Departure - Departure Disposition: 01 Home, Self Care Clinical Impression: Altered mental status, Elevated liver enzymes, Alcohol intoxication Condition: Stable Instructions: ED Alcohol Intoxication Comments: [facility] [address] [facility] [id number] Forms: PCP List Discharge Date/Time: 02/20/23 03:03
--- NOTE | 2023-02-20 01:29 | CT Report ---
PROCEDURE: HEAD WO INDICATIONS: seizures, etoh TECHNIQUE: Noncontrast 4.5 mm thick angled axial sections acquired from the foramen magnum to the vertex. For r adiation dose reduction, the following was used: automated exposure control, adjustment of mA and/or kV according to patient size. COMPARISON: CT head without, 09/22/2022. FINDINGS: Image quality: Excellent. CSF spaces: Basal cisterns are patent. No extra-axial fluid collections. Ventricles are normal in size and shape. Brain: No midline shift. No intracranial masses or hemorrhage. Niño-white matter interface is norm al. Skull and face: Calvarium and visualized facial bones are intact, without suspicious lesions. Sinuses: Visualized sinuses and mastoids are clear. IMPRESSION: 1. No acute intracranial abnormality. Reviewed by: Francesca Talbot MD on 02/20/2023 1:28 AM PDT Approved by: Francesca Talbot MD on 02/20/2023 1:28 AM PDT Station ID: [id number]
[2023-02-20 01:45] VITALS: BP 124/90
== END 2023-02-20 03:03 | disposition home or self-care (01) ==
LOC: EDUNIT# → ED 21:17
DX: F10.129 Alcohol abuse with intoxication, unspecified (principal); Y90.8 Blood alcohol level of 240 mg/100 ml or more; R41.82 Altered mental status, unspecified; R74.01 Elevation of levels of liver transaminase levels
CPT/HCPCS: 36415; 70450; 80053; 80306; 80320; 83690; 85025; 93005; 96365; 96366; 96368; 96375; 99284; 99285; J2060; J3411; J7040

== ENCOUNTER 2023-05-25 21:21 | Emergency (ER) | payer OTHER ==
[2023-05-25 22:08] LABS: MUDS CUTOFF CONCENTRATIONS CUTOFF CONC BELOW:
[2023-05-25 22:25] LABS: AMPHETAMINE SCREEN,URINE NEGATIVE (NEGATIVE); BARBITURATE SCREEN,UR NEGATIVE (NEGATIVE); BENZODIAZEPINES SCREEN, URINE NEGATIVE (NEGATIVE); COCAINE SCREEN URINE NEGATIVE (NEGATIVE); METHADONE SCREEN, URINE NEGATIVE (NEGATIVE); METHAMPHETAMINES SCREEN, URINE NEGATIVE (NEGATIVE); OPIATE SCREEN, URINE NEGATIVE (NEGATIVE); OXYCODONE SCREEN, URINE NEGATIVE (NEGATIVE); PROPOXYPHENE SCREEN, URINE NEGATIVE (NEGATIVE); THC CANNABINOID SCREEN, URINE NEGATIVE (NEGATIVE); TRICYCLIC ANTIDEPRESSANT,URINE NEGATIVE (NEGATIVE)
[2023-05-25 22:55] VITALS: O2SAT 100
[2023-05-26 00:22] LABS: BASOPHILS # (AUTO) 0.1 10^3/uL (0.0-0.1); BASOPHILS % (AUTO) 0.8 %; EOSINOPHILS % (AUTO) 0.3 %; HCT - HEMATOCRIT 49.7 % (42.0-52.0); HGB - HEMOGLOBIN 16.9 g/dL (14.0-18.0); LYMPHOCYTES # (AUTO) 2.1 10^3/uL (1.5-3.5); LYMPHOCYTES % (AUTO) 34.5 %; MEAN CORPUSCULAR HEMOGLOBIN 30.3 pg (27.0-31.0); MEAN CORPUSCULAR VOLUME 89.1 fL (80.0-94.0); MEAN PLATELET VOLUME 8.6 fL (7.4-11.4); MONOCYTES # (AUTO) 0.7 10^3/uL (0.0-1.0); MONOCYTES % (AUTO) 10.7 %; NEUTROPHILS # (AUTO) 3.3 10^3/uL (1.5-6.6); NEUTROPHILS % (AUTO) 53.5 %; PLT - PLATELET COUNT 316 10^3/uL (130-450); RED BLOOD COUNT 5.58 10^6/uL (4.70-6.10); WHITE BLOOD COUNT 6.2 x10^3/uL (4.8-10.8)
[2023-05-26 00:42] LABS: ALBUMIN 5.1 g/dL (3.2-5.5); ALBUMIN/GLOBULIN RATIO 1.6 (1.0-2.2); ALKALINE PHOSPHATASE 64 IU/L (42-121); ALT ALANINE AMINOTRANSFERASE 65 IU/L (10-60); AST ASPARTATE AMINOTRANSFERASE 75 IU/L (10-42); BILIRUBIN,TOTAL 0.7 mg/dL (0.2-1.0); BUN - BLOOD UREA NITROGEN 6 mg/dL (6-20); CALCIUM 9.1 mg/dL (8.5-10.3); CARBON DIOXIDE - CO2 26 mmol/L (21-32); CHLORIDE 100 mmol/L (101-111); CK- CREATINE KINASE 282 IU/L (30-223); CREATININE 0.9 mg/dL (0.6-1.3); GFR - MDRD 102 (>89); GLUCOSE 89 mg/dL (74-104); LIPASE 17 U/L (11-82); POTASSIUM 3.8 mmol/L (3.5-4.5); SODIUM 141 mmol/L (135-145); TOTAL PROTEIN 8.2 g/dL (6.4-8.9)
[2023-05-26 00:47] LABS: THYROID STIMULATING HORMONE 4.27 uIU/mL (0.34-5.60)
[2023-05-26 00:48] LABS: SALICYLATE < 1.5 mg/dL
[2023-05-26 00:49] LABS: ACETAMINOPHEN < 0.1 ug/mL
[2023-05-26 00:52] LABS: BILIRUBIN,URINE NEGATIVE (NEGATIVE); GLUCOSE, URINE (UA) NEGATIVE (NEGATIVE); KETONES,URINE (UA) NEGATIVE (NEGATIVE); LEUKOCYTE ESTERASE, URINE NEGATIVE (NEGATIVE); NITRITE,URINE NEGATIVE (NEGATIVE); OCCULT BLOOD,URINE NEGATIVE (NEGATIVE); PROTEIN,URINE NEGATIVE (NEGATIVE); UROBILINOGEN,URINE 0.2 (NORMAL) E.U./dL (NORMAL)
[2023-05-26 00:53] LABS: CLARITY,URINE CLEAR (CLEAR)
--- NOTE | 2023-05-26 02:06 | ED Physician Documentation ---
PD HPI MHE - Stated complaint Stated Complaint: SI - Chief complaint Chief Complaint: MHE - History obtained from History obtained from: Patient - Additional information Additional information: 27-year-old man with history of alcohol abuse presents with alcohol intoxication and suicidal ideation tonight. Patient has been in intensive outpatient mental health treatment through the [facility] and is in [facility] group with plans to admit him to inpatient substance abuse/mental health recovery. he denies active SI to me, as well as HI/AVH and denies having access to firearms. PD PAST MEDICAL HISTORY - Past Medical History Cardiovascular: None Respiratory: None Neuro: None Endocrine/Autoimmune: None GI: None : None HEENT: None Psych: None Musculoskeletal: None Derm: None - Past Surgical History Past Surgical History: Yes HEENT: Tonsil/Adenoidectomy - Present Medications Home Medications: Ambulatory Orders Medication Instructions Recorded Confirmed No Known Home Medications 05/25/23 05/25/23 - Allergies Allergies/Adverse Reactions: Allergies Allergy/AdvReac Type Severity Reaction Status Date / Time No Known Drug Allergies Allergy Verified 05/25/23 21:41 - Social History Does the pt smoke?: No Smoking Status: Never smoker Does the pt drink ETOH?: Yes Does the pt have substance abuse?: No - Immunizations Immunizations are current?: Yes PD ED PE NORMAL - Vitals Vital signs reviewed: Yes - General General: Alert and oriented X 3, No acute distress, Well developed/nourished, O ther (clinically intoxicated) - HEENT HEENT: Atraumatic, PERRL, EOMI, Moist mucous membranes, Pharynx benign - Neck Neck: Supple, no meningeal sign - Cardiac Cardiac: RRR - Respiratory Respiratory: No respiratory distress, Clear bilaterally - Abdomen Abdomen: Non tender, Non distended - Derm Derm: Normal color, Warm and dry - Extremities Extremities: No deformity - Neuro Neuro: Alert and oriented X 3 - Psych Psych: Other (depressed affect) Results - Vitals Vitals: Vital Signs - 24 hr 05/25/23 05/25/23 05/26/23 21:23 22:47 01:17 Temperature 37.1 C 37 C 36.5 C Heart Rate 109 H 82 73 Respiratory 17 20 20 Rate Blood Pressure 152/80 H 128/74 124/75 O2 Saturation 95 100 100 Oxygen O2 Source Room air - Labs Labs: Laboratory Tests 05/25/23 05/25/2305/25/23 21:36 21:36 22:37 WBC RBC Hgb Hct MCV MCH MCHC RDW Plt Count MPV Neut # (Auto) Lymph # (Auto) [place] # (Auto) Eos # (Auto) Baso # (Auto) Absolute Nucleated RBC Nucleated RBC % Sodium Potassium Chloride Carbon Dioxide Anion Gap BUN Creatinine Estimated GFR (MDRD) Glucose Calcium Magnesium Total Bilirubin AST ALT Alkaline Phosphatase Total Creatine Kinase Total Protein Albumin Globulin Albumin/Globulin Ratio Lipase TSH Urine Color YELLOW Urine Clarity CLEAR Urine pH 6.0 Ur Specific [place] <=1.005 Urine Protein NEGATIVE Urine Glucose (UA) NEGATIVE Urine Ketones NEGATIVE Urine Occult Blood NEGATIVE Urine Nitrite NEGATIVE Urine Bilirubin NEGATIVE Urine Urobilinogen 0.2 (NORMAL) Ur Leukocyte Esterase NEGATIVE Ur Microscopic Review NOT INDICATED Urine Culture Comments NOT INDICATED Salicylates Urine Opiates Screen NEGATIVE Ur Oxycodone Screen NEGATIVE Urine Methadone Screen NEGATIVE Ur Propoxyphene Screen NEGATIVE Acetaminophen Ur Barbiturates Screen NEGATIVE Ur Tricyclics Screen NEGATIVE Ur Phencyclidine Scrn NEGATIVE Ur Amphetamine Screen NEGATIVE U Methamphetamines Scrn NEGATIVE U Benzodiazepines Scrn NEGATIVE Urine Cocaine Screen NEGATIVE U Cannabinoids Screen NEGATIVE Ethyl Alcohol 397.6 05/25/23 05/25/23 22:37 22:37 WBC 6.2 RBC 5.58 Hgb 16.9 Hct 49.7 MCV 89.1 MCH 30.3 MCHC 34.0 RDW 12.0 Plt Count 316 MPV 8.6 Neut # (Auto) 3.3 Lymph # (Auto) 2.1 [place] # (Auto) 0.7 Eos # (Auto) 0.0 Baso # (Auto) 0.1 Absolute Nucleated RBC 0.00 Nucleated RBC % 0.0 Sodium 141 Potassium 3.8 Chloride 100 L Carbon Dioxide 26 Anion Gap 15.0 H BUN 6 Creatinine 0.9 Estimated GFR (MDRD) 102 Glucose 89 Calcium 9.1 Magnesium 2.0 Total Bilirubin 0.7 AST 75 H ALT 65 H Alkaline Phosphatase 64 Total Creatine Kinase 282 H Total Protein 8.2 Albumin 5.1 Globulin 3.1 Albumin/Globulin Ratio 1.6 Lipase 17 TSH 4.27 Urine Color Urine Clarity Urine pH Ur Specific [place] Urine Protein Urine Glucose (UA) Urine Ketones Urine Occult Blood Urine Nitrite Urine Bilirubin Urine Urobilinogen Ur Leukocyte Esterase Ur Microscopic Review Urine Culture Comments Salicylates < 1.5 Urine Opiates Screen Ur Oxycodone Screen Urine Methadone Screen Ur Propoxyphene Screen Acetaminophen < 0.1 Ur Barbiturates Screen Ur Tricyclics Screen Ur Phencyclidine Scrn Ur Amphetamine Screen U Methamphetamines Scrn U Benzodiazepines Scrn Urine Cocaine Screen U Cannabinoids Screen Ethyl Alcohol PD Medical Decision Making - ED course ED course: 27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 Patient is currently in outpatient treatment for depression and alcohol abuse. he currently denies active plan to me, and denies HI/AVH or access to firearms. He is medically cleared based on labwork and psychiatric clearance provided to f/u outpatient per telepsych evaluation. return precautions given. contracted for safety. Departure - Departure Disposition: 01 Home, Self Care Clinical Impression: Depression, Alcoholic intoxication, Suicidal ideation Condition: Stable Instructions: ED Depression, ED Alcohol Intoxication Comments: You were seen in the emergency department for alcohol intoxication, depressed mood and suicidal thoughts. Please follow-up with your PCM and outpatient mental health professionals and return to the emergency department if you have any new or worsening symptoms or other concerns. Forms: PCP List
--- NOTE | 2023-05-26 04:16 | TELEPSYCH PHYS NOTE ---
[facility] Telepsych Consult Consult Date: 05/26/23 Name of Referring Provider:: ED provider Reason for Consult: Alcohol Intoxication - Suicide Risk Sreening (ASQ Tool) In the past few weeks, have you wished you were ?: No In the past few weeks, have you felt that you or your family would be better off if you were ?: No In the past week, have you been having thoughts about killing yourself?: No Have you ever tried to kill yourself?: No - Assessment Language: Croatian [employer] Lock[employer] Supervisor Required: No Cultural, Orthodox or Spiritual Preferences: None Notes: From initial ER assessment: 27-year-old man with history of alcohol abuse presents with alcohol intoxication and suicidal ideation tonight. Patient has been in intensive outpatient mental health treatment through the [facility] and is in [facility] group with plans to admit him to inpatient substance abuse/mental health recovery. he denies active SI to me, as well as HI/AVH and denies having access to firearms. Chief Complaint: "suicidal ideations" History of Present Illness: Patient is a 27 year old male who presented to the ED with BAL of 397. Patient is curently enrolled in outpatient substance abuse treatment program. He states he presented to the ER today for suicidal ideations. He has never tried to hurt himself before. He states he thinks about "going to sleep and not waking up anymore...." Patient states he would "never act on it....I just wouldn't do that...." Pt states he is an alcoholic "I broke down this weekend...." States he had almost a whole bottle of clear liquor. Patient is currently in a program through the [facility] 3 times a week. Current stressors include waiting for a court date for his divorce, moving out of his house. Suicide Ideation - Homicide Ideation - Self Harm: +SI no plan "just the thoughts" Psychiatric History - Treatment History: currently in a program with the [facility]; states he tried to see someone for anxiety and they told him to "sleep more"; no history of [facility]; currently waiting to go to inpatient substance abuse treatment Community Resources Accessed: AA Family Psych History/ History of suicide: denies Nutritional Status: No nutritional concerns - Medication & Allergies Home Medications: Ambulatory Orders Medication Instructions Recorded Confirmed No Known Home Medications 05/25/23 05/25/23 Allergies/Adverse Reactions: Allergies Allergy/AdvReac Type Severity Reaction Status Date / Time No Known Drug Allergies Allergy Verified 05/25/23 21:41 - Drug & Alcohol History Does patient have Drug/ETOH history or addictive behavior?: Yes Use: Uses substance without health or social issues: Alcohol Use Issues: Intoxication, Anxiety Disorder, Sleep Disorder Abuse: Recurrent use of substance despite neg consequences: Alcohol Abuse Issues: Intoxication, Anxiety Disorder, Sleep Disorder Dependence: Experiences withdrawal or developed tolerances: Alcohol Dependence Issues: Intoxication, Anxiety Disorder - Trauma Does the patient have a history of trauma, abuse, neglect or explotation?: No - Personal Information Does the patient have a history or present tendencies for violence?: None Services History: patient is currently in the [facility]; no active combat Does patient have any Legal Charges or Investigations?: No Environment & Living Situation - Social, Peer-Group (Note): At home Environment & Living Situation - Social, Peer-Group (Notes): was ; no kids Marital Status - Family Circumstances: , pending divorce Education: graduated from high school;no college Occupation: [employer]; [employer] - Interdisciplinary Input: none available - Medical History Psychiatric: reports: None, Anxiety Neurological: reports: None Eyes, Ears, Nose, Throat: reports: None Cardiovascular: reports: None Respiratory: reports: None Gastrointestinal: reports: None Urinary: reports: None Musculoskeletal: reports: None Skin: reports: None - Surgical History HEENT: reports: Tonsil/Adenoidectomy - Mental Status Exam Appearance and Attire: fair grooming, in hospital scrubs Attitude and Behavior: calm cooperative Speech: regular rate rhythm volume tone Affect and Mood: "good, but self conscious" constricted Association and Thought Process: linear, goal directed Thought Content: denies SI currently "just really tired" Perception: denies AH or VH Sensorium, memory and orientation: awake, alert, oriented Intellectual - Cognitive functioning: average Insight and Judgement: fair Emotional and Behavioral Functioning: fair Ability to Self-Care: fair - Personal Goals Short-term Goals: getting out of the [facility]; [place]; starting college and using my GI bill - Risk/Protective Factors Risk Factors: Substance intoxication or withdrawal Protective Factors / Internal: Fear of or the actual act of killing self Protective Factors / External: Cultural, spiritual and/or moral attitudes against suicide - Plan Impression/Risk Assessment: Patient is a 27 year old male currently in the [facility] who presents with alcohol intoxication and suicidal thoughts. Patient is curently enrolled in an outpatient program through the [facility]. He states he would never harm himself and while he has thoughts about dying he has no intention of acting on them. Patient states he is safe at home; he has no access to firearms. He has an appt today at 8am with his outpatient program and can be dscharged to outpatient follow up. He is scheduled to move to inpatient facility in [facility]. Treatment - Therapy Recommendations: 12 step; stupportive; abstain from alcohol Pharmacological Recommendations: CIWA protocol while in the ER Consider Naltrexone 50 mg PO BID for craving - Time Spent & Provider Location Telepsych consultation conducted via videoconferencing: Yes List names and roles of persons who participated in consult: Patient, Aron Miley Gee MD (provider) Telepsych Provider Location: [facility] Time Spent (Minutes): 60
[2023-05-26 05:14] VITALS: BP 124/74
== END 2023-05-26 05:14 | disposition home or self-care (01) ==
LOC: ED 21:21
DX: R45.851 Suicidal ideations (principal); F32.A Depression, unspecified; F10.129 Alcohol abuse with intoxication, unspecified; Y90.8 Blood alcohol level of 240 mg/100 ml or more
CPT/HCPCS: 36415; 80053; 80306; 80307; 80320; 80329; 81003; 82550; 83690; 83735; 84443; 85025; 90834; 99283; Q3014; 81001; 87086